=== PATIENT | female | born 1950 | race American Indian/Alaskan Native ===

== ENCOUNTER 2017-02-26 09:46 | Outpatient (CLI) | payer MEDICARE ==
[2017-02-26 11:17] LABS: Blood Urea Nitrogen 15 mg/dL (7-17)
--- NOTE | 2017-02-26 13:37 | Magnetic Resonance Report ---
MR LOWER EXTREMITY NON-JOINT LEFT WITH AND WITHOUT CONTRAST History: Left leg mass. Technique: Multisequence, multiplanar MRI before and after IV gadolinium. Findings: A marker is placed on the anterolateral soft tissues. Underlying this marker, is normal appearing subcutaneous fat. There is no evidence for mass or fluid collection. No inflammatory changes. There is susceptibility artifact in the region of the knee which probably represents a knee replacement. Otherwise, the bony structures and muscular structures are within normal limits. No abnormal enhancement following IV gadolinium. Impression: Lipoma.
== END 2017-02-26 09:47 | disposition home or self-care (01) ==
LOC: MRI 09:46
PROVIDERS: ATTEND Surgery Vascular Surgery
DX: D17.24 Benign lipomatous neoplasm of skin and subcutaneous tissue of left leg (principal)
CPT/HCPCS: 36415; 73720; 82565; 84520; A9577

== ENCOUNTER 2019-04-27 09:42 | Day surgery (SDC) | payer MEDICARE ==
--- NOTE | 2019-04-27 10:47 | Anesthesia Consultation ---
Anesthesia Consult and Med Hx Date of service: 04/27/19 - Airway Anesthetic Teeth Evaluation: Poor (2 lower canines remaining) Intubation Access Assessment: Possibly Difficult (uncooperative with airway exam; hx trach removed 08/2018) - Pulmonary Exam CTA: Yes - Cardiac Exam Cardiac Exam: RRR (systolic murmur) - Pre-Operative Health Status ASA Pre-Surgery Classification: ASA3 Proposed Anesthetic Plan: MAC - Pulmonary Hx Smoking: No Hx Asthma: Yes (daily albuterol neb) Hx Respiratory Symptoms: Yes ("coughing spells") Home Oxygen Therapy: Yes (prn for SpO2 <92% (infrequent, per daughter)) - Cardiovascular System Hx Hypertension: Yes Hx Heart Attack/AMI: No Hx Percutaneous Transluminal Coronary Angioplasty (PTCA): No Hx Pacemaker: No Hx Internal Defibrillator: No - Central Nervous System Hx Neuromuscular Disorder: Yes (R flacid paralysis; bedbound.) Hx Seizures: Yes (frequent "silent" seizures. Took antihypertensives today.) CVA: Yes (x5; most recent 04/2018; last dose eliquis this morning) - Endocrine Hx Renal Disease: No Hx Liver Disease: No Hx Insulin Dependent Diabetes: No Hx Non-Insulin Dependent Diabetes: No Hx Thyroid Disease: No - Other Systems Hx Obesity: Yes - Additional Comments Anesthesia Medical History Comments: Paitent somnolent, which is near baseline per family. PMH provided by daughter whom is primary pneumatic tool operator. Received usual morning meds via PEG this morning. GI made aware of current anticoagulant use.
--- NOTE | 2019-04-27 10:48 | Anesthesia Day of Surgery ---
Anesthesia Day of Surgery - Day of Surgery Patient Examined: Yes Patient H&P Reviewed: Yes Patient is NPO: Yes
[2019-04-27] MEDS ORDERED: NACL 0.9% 1000 ML 1,000 ML IV SCH (12:00)
[2019-04-27] MEDS ORDERED: DIPRIVAN 10 MG/ML IV ONE ×2 (12:06)
[2019-04-27] MEDS ORDERED: XYLOCAINE MPF 2% ONE (12:30)
--- NOTE | 2019-04-27 12:42 | Procedure Note ---
Date of procedure: 04/27/19 Pre-op diagnosis: Non-Functiong PEG Post-op diagnosis: other (S/P PEG revision/ Mild,Distal Esophagitis and Gastritis) Procedure: EGD and PEG Anesthesia: MAC Surgeon: RHONDA KAYE Estimated blood loss: minimal Pathology: none Condition: stable Disposition: same day (Resume medication. Follow up as needed ([phone]).)
--- NOTE | 2019-04-27 12:52 | History and Physical Report ---
HISTORY OF PRESENT ILLNESS: This is a 68-year-old -[place] female with an underlying history of diabetes, hypertension, seizure disorder, history of CVA. She normally receives nutrition through a PEG tube, which has lately not been functioning well. There was also a question as to whether the patient may have had some dark fluid in the PEG tube suggestive possibly of some upper GI bleeding. She has a history of taking anticoagulants. EGD and PEG revision is to be done after getting informed consent to help remove the tube and to replace it with a new one. The patient has a history of seizure disorder, takes seizure medications. ALLERGIES: No known allergies. PHYSICAL EXAMINATION: VITAL SIGNS: Otherwise are stable. HEENT: Shows no JVD. LUNGS: Shows reduced breath sounds. CARDIOVASCULAR: Normal. ABDOMEN: Soft. She has a PEG tube, which is nonfunctioning. NEUROLOGIC: She is arousable, but not alert and oriented. ASSESSMENT: Nonfunctioning PEG, plan is to do an EGD with PEG revision. History of seizure disorder, diabetes mellitus and hypertension. PLAN: To do an EGD and PEG revision as stated above. JOB# [id number] CECIL/VALERIO
--- NOTE | 2019-04-27 13:10 | Operative Report ---
PROCEDURE: Esophagogastroduodenoscopy and PEG revision. INDICATIONS: This is a 68-year-old -[place] female with an underlying history of seizure disorder, history of CVA, adult failure to thrive, hypertension and diabetes mellitus. The patient's G-tube has not been functioning well. There was a question as to whether the patient may also have been having some upper GI bleeding. DESCRIPTION OF PROCEDURE: The procedure was done after getting informed consent with MAC anesthesia. Instrument was passed through the hypopharynx into the esophagus, which showed some mild distal esophagitis. Stomach showed the G-tube to be in place within the gastric lumen. There was no active bleeding noted within the gastric lumen either in the straight or the retroverted view. The pylorus was patent. Duodenum in the first and second portion appeared normal. The area of the anterior abdominal wall where the PEG tube was in place was cleaned and draped in standard fashion. It was withdrawn by gentle traction. The guidewire was passed through the stoma into the cavity of the stomach, which was then caught with the polypectomy snare and brought out through the mouth. This was then tied to the 20-[place] tube, which was then pulled into place. The skin marking was at 3 cm. ASSESSMENT: Removal of the nonfunctioning percutaneous endoscopic gastrostomy tube, status post percutaneous endoscopic gastrostomy revision. No active upper gastrointestinal bleeding noted, mild distal esophagitis, mild gastritis. PLAN: To resume previous feeding and medication through the PEG tube in an hour's time and have the patient follow up as needed. The procedure was done in the GI lab with assistance of the GI lab team, which included RN, Cathi Zambrano, and Mica gonsalez as well as with the assistance of anesthesia. JOB# [id number] CECIL/VALERIO
[2019-04-27 14:30] VITALS: BP 143/65
== END 2019-04-27 09:43 | disposition home or self-care (01) ==
LOC: GIO 09:42
DX: K94.23 Gastrostomy malfunction (principal); I10 Essential (primary) hypertension; J45.909 Unspecified asthma, uncomplicated; K20.9 Esophagitis, unspecified; K29.70 Gastritis, unspecified, without bleeding; E66.9 Obesity, unspecified; Z68.30 Body mass index [BMI] 30.0-30.9, adult; Z96.652 Presence of left artificial knee joint; Z98.890 Other specified postprocedural states; Z79.899 Other long term (current) drug therapy; Z86.73 Personal history of transient ischemic attack (TIA), and cerebral infarction without residual deficits
CPT/HCPCS: 43246; 82962; J2704; J7030